=== PATIENT | female | born 1995 | race Caucasian/White ===

== ENCOUNTER 2025-04-24 15:48 | Day surgery (SDC) | payer OTHER, SELFPAY ==
[2025-04-24] VITALS (22 sets, daily range): BP systolic 69–116; BP diastolic 29–74; PULSE 76–128; RESP 14–20; TEMP 36.6–37.1; O2SAT 98–100; BMI 19.3
--- NOTE | 2025-04-24 16:01 | US_ITS ---
PROCEDURE: TRANSVAGINAL W/PREG US 04/24/2025 REASON FOR EXAM: VAGINAL BLEEDING, NEEDS TO BE PORTABLE TECHNIQUE: Procedure Code: USTVAGP Modality: US Procedure: TRANSVAGINAL W/PREG US COMPARISON: None available. FINDINGS Prominent size of the uterus measuring 15.3 x 10.3 x 7.1 cm. No discrete uterine myoma. No normal intrauterine gestational sac/sac-like structure is visualized. There is prominent thickening of the endometrium and moderate amount of complex heterogeneous probable blood clot material within the uterine cavity and expanding the cervical os, which is nonspecific but suggestive of an ongoing/incomplete spontaneous . Neither ovary is identified with certainty on this exam. No adnexal mass or significant free pelvic fluid is appreciated. US/Transvaginal w/Preg US IMPRESSION: No IUP visualized. Prominent thickened endometrium with moderate amount of com plex heterogeneous probable blood clot material within the uterine cavity and expanding the cervical os. Nonspecific but findi ngs most likely reflect an ongoing/incomplete spontaneous . Correlate clinically. Reading Location: [id number]
--- NOTE | 2025-04-24 16:16 | EDS_ITS ---
HPI HPI - Female History of Present Illness Chief Complaint: Vag Bld, Preg Detail of Chief Complaint: Vaginal bleeding for couple week Informant: patient and other (Security Agent Fabiola) Pain Pain: Positive for Pelvic Pain Bleeding Issue: Positive for Vaginal bleeding and Passing clots Associated Symptoms Test: Positive Sexually: Positive for Active P: 3 Ab: 1 Narrative Narrative: Patient is a 29-year-old G4, P3 Ab1 female. Present twin gestation. I was told by the financial reporting manager Fabiola that she had demise of one of the twins. Uncertain whether she passed it or did not pass it. She has been bleeding off and on for couple of weeks. She been in and out of consciousness today. She becomes very lightheaded if she sits up or stands up. She is passing large clots. The financial reporting manager and agree that she looks very pale. They believe she has positive blood type. She has never received RhoGAM. She has never had delivery here. She has not been seen by any PROFESSOR OF COMMUNICATION ARTS. Prior similar symptoms: Yes (Prior ) Recent Illness/Hospitalization: No (Ultrasound at facility [facility] not affiliated with the [facility] Medical History Miscarriage Home Medications Medication Instructions Recorded Last Taken Type NK 04/24/25 Unknown History Allergy/AdvReac Type Severity Reaction Status Date / Time No Known Allergies Allergy Verified 04/24/25 15:56 Social History household members: spouse housing: house Smoking Status: Never smoker ROS ROS ED Constitutional Constitutional ED: Denies chills, fever(s) or subjective ENT ENT ED: Denies ear pain Cardiovascular Cardiovascular: Reports palpitations and racing heartbeat; Denies chest pain Respiratory/Chest Respiratory/Chest: Reports dyspnea on exertion; Denies cough or dyspnea Gastrointestinal Gastrointestinal: Reports nausea; Denies abdominal pain or vomiting Genitourinary Genitourinary ED: Denies dysuria, hematuria or urinary frequency Musculoskeletal Musculoskeletal: Denies arthralgias or myalgias Neurologic Neurologic: Reports weakness Hematologic/Lymphatic Hematologic/Lymphatic: Denies easy bleeding or easy bruising EXAM Physical Exam Const Vital Signs: 04/24/25 15:49 04/24/25 16:45 04/24/25 17:00 Temperature 98.1 F Temperature Source Oral Pulse Rate 112 H 107 H 105 H Respiratory Rate 20 H 14 15 Blood Pressure 116/74 104/63 104/63 Blood Pressure Mean 88 76 76 Pulse Ox 100 100 98 Oxygen Delivery Method Room Air Room Air 04/24/25 17:44 Temperature 98.6 F Temperature Source Pulse Rate 105 H Respiratory Rate 15 Blood Pressure 104/63 Blood Pressure Mean 76 Pulse Ox 98 Oxygen Delivery Method Positive well nourished and well developed Constitutional Narrative: Patient is very pale. She is tachycardic. Her hands are covered with blood. General Appearance ED: well developed and pallor HEENT Reports moist mucous membranes Negative for trauma Eyes PERRL and EOMs intact bilaterally General Eye ED: Yes pale conjunctiva; Negative for scleral icterus Neck no lymphadenopathy, supple and no JVD Resp normal respiratory effort and clear to auscultation bilaterally Cardio regular rate, regular rhythm, S1 normal heart sound, no murmurs and no JVD GI normal to inspection, nondistended, normoactive bowel sounds, soft to palpation, non-distended and no masses; Negative for non-tender Narrative: Patient has large clots noted at the introitus. These were removed. On bimanual exam the external/internal os is open to my fingertip. Speculum was inserted. There was a gush of blood. Large clots were removed. After clearing the clots with gauze able to see the cervix. There appears to be products of conception noted. Attempted to tether out the products of conception. This was unsuccessful. Because there is confusion regarding one of the twins being alive and 1 having demise stat transvaginal portable ultrasound was ordered. Also the PROFESSOR OF COMMUNICATION ARTS on-call Dr. Brewer was paged because patient in all likelihood will need a D&C. Extremity full ROM; Negative for normal to inspection Extremity Narrative: Very pale with 2 to 3-second capillary refill Neuro oriented x3 and CN's II-XII intact bilaterally Neuro Narrative: Patient is slow to response. Uncertain whether this is due to language barrier or the fact that she is ill Skin General Skin Exam: pallor MDM MDM MDM Narrative Medical decision making narrative: Patient with significant vaginal bleeding. Will obtain ABO Rh since blood type is unknown. She was typed and screened. Stat CBC was obtained to determine her baseline. She had glass of water to p.m. Apparently she has not had anything to eat. Since she has had no care by a hotel desk clerk Dr. Maura Brewer who is on- call for OB no doc was paged. Patient was Katrin a fluid bolus of 1 L normal saline. Lab Data Attestation: I reviewed the patient's lab results. Lab results narrative: H&H 7.8 and 23.3. White count elevated 11.9 thousand with slight shift. Lactate elevated 2.1. Patient was initially typed and screened. She was typed and crossed orf 2 units. Presume her hemoglobin will drop when she equilibrates and the fact that she got IV fluids. Labs: Laboratory Results - last 24 hr 04/24/25 04/24/25 16:06 16:08 WBC 11.9 H RBC 2.59 L Hgb 7.8 L Hct 23.3 L MCV 90.0 MCH 30.1 MCHC 33.5 RDW Std Deviation 46.2 H RDW Coeff of Noe 14.1 Plt Count 278 MPV 8.9 Immature Gran % (Auto) 0.700 Neut % (Auto) 79.6 H Lymph % (Auto) 12.0 L Creek % (Auto) 6.2 Eos % (Auto) 1.1 Baso % (Auto) 0.4 Absolute Neuts (auto) 9.4 H Absolute Lymphs (auto) 1.42 Nucleated RBC % 0 Lactic Acid 2.1 H* Blood Type O POSITIVE Antibody Screen NEGATIVE Crossmatch See Detail Management Discussion w/another healthcare provider: Livestock Speculator (Spoke with Dr. Ariadne Brewer on-call for OB no doc. She would be able to see patient.) Treatment and Re-Evaluation Narrative: Dr. Brewer is presently speaking with patient, 1720. Dr. Ariadne Brewer requested IV iron. This was ordered. Plan is the OR Critical Care Time Critical Care Time: Yes Critical care time (excluding procedures): 30-74 minutes (36 minutes), Including time spent: (History, physical, documentation, interpretation of laboratory results and treatment for hemorrhagic shock, discussion with family), Discussing w/Consultants (OB on-call), Arranging Admission or Transfer and - (Transfusion due to hemorrhagic shock) Discharge Plan Dx/Rx/DC Orders Clinical Impression: Hemorrhagic shock, Vaginal bleeding affecting early , Sinus tachycardia, Symptomatic anemia, Signs and symptoms of anemia, Incomplete with shock Disposition Disposition: Acute Care Hospital [facility]
[2025-04-24 16:21] LABS: Hematocrit 23.3 % (37-47); Hemoglobin 7.8 g/dL (12.0-15.0); Immature Granulocytes Count 0.080 X10^3/uL (0.0-0.0); Mean Corp Hgb Conc 33.5 g/dL (32-36); Mean Corpuscular Volume 90.0 fL (81-99); Mean Platelet Vol. 8.9 fl (6.2-12.0); NRBC Flagged by Analyzer 0 % (0-5); Platelet Count 278 K/mm3 (150-450); RBC Distribution Width CV 14.1 % (11.6-14.6); RBC Distribution Width SD 46.2 fl (35.1-43.9); Red Blood Count 2.59 M/mm3 (4.2-5.4); White Blood Count 11.9 K/mm3 (4.4-11.0)
[2025-04-24] MEDS: 0.9% Normal Saline (1000mL) 1,000 ML 999 ML IV (16:21)
--- NOTE | 2025-04-24 17:53 | PCM.HP.OB ---
HPI - General General Date of Admission: 04/24/25 Date of Service: 04/24/25 Chief Complaint: bleeding HPI Narrative CORI RICKS, is a 29 F who presents with significant bleeding. Around 12-13 week IUP. Previous US with twin gestation. Although one was just a sac. Has been bleeding for over a week. And now bleeding much heavier and passing clots. Hgb 7.8. No starting level available. US with looks like placenta but no fetus with a HR. Reviewed with pt. D&C. Discussed possible Cytotec however given significant blood loss she will likely continue to bleed and need a blood transfusion and may need D&C anyway. Decline blood at this time but would be ok if need intraop. OK with IV iron. Maternal Data Information Gestational age: 12-13 week [facility] Medical History Miscarriage Home Medications Medication Instructions Recorded Last Taken Type NK 04/24/25 Unknown History Allergy/AdvReac Type Severity Reaction Status Date / Time No Known Allergies Allergy Verified 04/24/25 15:56 Social History household members: spouse housing: house Smoking Status: Never smoker History 5 Elective abortions Hx Para 3 Spontaneous abortions 1 Hx # Term Pregnancies Ectopic pregnancies Hx # Pregnancies Multiple births # of living children ROS ENT HEENT: Denies dizziness Cardiovascular Cardiovascular: Denies chest pain or dyspnea Gastrointestinal Gastrointestinal: Denies diarrhea, nausea or vomiting Vital Signs Vital Signs Vital Signs: 04/24/25 15:49 04/24/25 16:45 04/24/25 17:00 Temperature 98.1 F Temperature Source Oral Pulse Rate 112 H 107 H 105 H Respiratory Rate 20 H 14 15 Blood Pressure 116/74 104/63 104/63 Blood Pressure Mean 88 76 76 Pulse Ox 100 100 98 Oxygen Delivery Method Room Air Room Air 04/24/25 17:44 Temperature 98.6 F Temperature Source Pulse Rate 105 H Respiratory Rate 15 Blood Pressure 104/63 Blood Pressure Mean 76 Pulse Ox 98 Oxygen Delivery Method Weight Weight: 54.2 kg Body Mass Index (BMI) 19.3 Physical Exam Const alert and oriented x3 General Appearance: cooperative and comfortable HEENT normocephalic Head and Scalp: atraumatic Neck full ROM Resp normal respiratory effort Cardio Rate: tachycardic GI Negative for non-distended or no masses Extremity normal to inspection and full ROM Neuro moves all extremities Labs Labs Labs: Blood Type O POSITIVE Antibody Screen NEGATIVE Hct, (37-47) 23.3 % L Hgb, (12.0-15.0) 7.8 g/dL L Obstetrics Ultrasound Assessment & Plan (1) Incomplete with shock: (2) Signs and symptoms of anemia: PLAN: Plan Suction D&C
[2025-04-24] MEDS: Iron Sucrose Complex 200 MG in 0.9% Normal Saline (100mL Bag) 100 ML 220 MG IV (18:01)
--- NOTE | 2025-04-24 18:03 | PCM.PRE.AN2 ---
ASA Classification* ASA Classification ASA Classification: 2 (Denies all PMH) and E Assessment & Plan Anesthesia* Anesthesia Assessment Anesthesia Assessment: Discussed sedation and/or anesthesia options, risks, benefits, and alternatives with patient/parents/legal guardian/POA. Questions invited. The patient/parents/legal guardian/POA seems to understand and agrees to proceed with anesthesia plan. Reviewed the physical assessment, medical history, allergy history and patient home medications list prior to surgery/procedure/anesthetic and documented any changes. Performed airway and anesthesia risk assessments. As per ER: Patient is a 29-year-old G4, P3 Ab1 female. Present twin gestation. I was told by the geotechnical field technician Fabiola that she had demise of one of the twins. Uncertain whether she passed it or did not pass it. She has been bleeding off and on for couple of weeks. She been in and out of consciousness today. She becomes very lightheaded if she sits up or stands up. She is passing large clots. The geotechnical field technician and agree that she looks very pale. They believe she has positive blood type. She has never received RhoGAM. She has never had delivery here. She has not been seen by any QUARTER SECTION IRONER. Patient consents to blood if needed in emergency. I conveyed to the patient that she will most likely require blood transfusion. Patient agrees to receive blood if needed. Given patient HR increasing in ED to 120-130, and slight hypotension, as well as patient looking pale, ED physician and I agreed to go ahead and transfuse 2 units pRBC in ED. We will order 2 additional units of pRBC and FFP each on standby. Patient receiving iron infusion during my interview. I discussed the benefits, risks, and alternatives of blood transfusion with the patient. The patient verbalized understanding. Opportunity for questions invited. Anesthesia Type Anesthesia Type: General History Source History Obtained from:: Patient and Chart Anesthesia Focused Assessment* Temperature: 98.5 F Pulse Rate: 128 Blood Pressure: 104/62 Respiratory Rate: 20 Pulse Ox: 100 Oxygen Delivery Method: Room Air Airway Assessment Mouth opens: >3 cm Mallampati Score: I Teeth Condition: Intact Neck Range of motion (ROM): Full ROM Labs Anesthesia Preop lab: CBC WBC, (4.4-11.0) 11.9 K/mm3 H Today, 16:06 RBC, (4.2-5.4) 2.59 M/mm3 L Today, 16:06 Hgb, (12.0-15.0) 7.8 g/dL L Today, 16:06 Hct, (37-47) 23.3 % L Today, 16:06 Plt Count, (150-450) 278 K/mm3 Today, 16:06 CHEMISTRY COAG Pre-Assessment Diagnosis/Proposed Procedure Planned Operative Procedure(s): D&C Anesthesia History Anesthesia History - learning support aide: Anesthesia History - learning support aide Hx Hospitalization Any Problems With Anesthesia No 04/24/25 17:55 Cholinesterase deficiency No 04/24/25 17:55 You/Your Family Experience No 04/24/25 17:55 fever (hyperthermia) with Relationship Recent Exposure to Contagious No 04/24/25 17:55 Disease Does patient have nerve No 04/24/25 17:55 stimulator Patient instructed to have No 04/24/25 17:55 device shut off --Does patient have Pacemaker or ICD? When Was Last Pacemaker Check QUESTION #4 FULL TEXT: You/Your Family Experience fever (hyperthermia) with Anesthesia Last Oral Intake Last Oral intake: Last Oral Intake NPO since Meds taken in AM with sips of water? Meds patient instructed to take am of surgery PONV PONV - learning support aide: PONV - learning support aide Female HX of Motion Sickness HX of N/V After Surgery Non-Smoker Duration of Surgery greater than 60 minutes Number of Risk Factors PONV Score Height & Weight Height & Weight: Anesthesia: Height & Weight Height 5 ft 6 in 04/24/25 17:55 Weight: 54.2 kg 04/24/25 17:55 Body Mass Index (BMI) 19.3 04/24/25 17:55 Respiratory Assessment Respiratory Assessment - learning support aide: Respiratory Tract Infection Hx - learning support aide Hx Respiratory Tract Infection No 04/24/25 17:55 STOP Sleep Apnea STOP Sleep Apnea - learning support aide: STOP Sleep Apnea - learning support aide Hx Hypertension No 04/24/25 17:55 Hx Sleep Apnea No 04/24/25 17:55 CPAP BIPAP Do you snore loudly (louder No 04/24/25 17:55 than talking or can be heard Do you often feel tired/ No 04/24/25 17:55 fatigued/ sleepy during daytime? Has anyone observed you stop No 04/24/25 17:55 breathing during sleep? STOP Results Negative 04/24/25 17:55 QUESTION #5 FULL TEXT : Do you snore loudly (louder than talking or can be heard through closed doors)? Tobacco Use History Tobacco Use History - learning support aide: Tobacco Use History - learning support aide Tobacco Use Smoking Status Never smoker 04/24/25 15:56 Hx Tobacco Use Years Smoking Packs Smoked per Day Smoking Cessation Date was within the last 15 years Hx Smoking Cessation Date Hx Smoking Cessation Counseling Hematologic Medial History Hematologic Hx - learning support aide: Hematologic Medical Hx - in home caregiver Hx of Blood Transfusion Hx of Transfusion in last 3 Months Date of Last Transfusion (if within last 3 months) Ever experience any problems with transfusion(s)? Specify any problems Hx of Preganancy in last 3 Months Nurse Filling Out Transfusion & Questions: Date: Time: Patient unable to answer at this time (ie. confused, unrespo /Reproduction History /Reproductive History - learning support aide: /Reproductive Hx- learning support aide Hx Now Yes 04/24/25 17:55 Gestational Age (in weeks): EDC: Hx 4 04/24/25 15:56 Hx Para 3 04/24/25 17:57 Hx Section SAB No 04/24/25 17:55 Does the father of the baby or his family experience fever w Father of the baby Malignant Hypertension history comment Active Medications Active Medications: Current Medications Generic Name Dose Route Start Last Admin Trade Name Freq PRN Reason Stop Dose Admin Iron Sucrose 200 mg/ Sodium 110 mls @ 220 mls/hr 04/24/25 17:45 Chloride IV 04/24/25 18:14 X1 ONE PFSH Medical History Miscarriage Home Medications Medication Instructions Recorded Last Taken Type NK 04/24/25 Unknown History Allergy/AdvReac Type Severity Reaction Status Date / Time No Known Allergies Allergy Verified 04/24/25 15:56 Social History household members: spouse housing: house Smoking Status: Never smoker Review of Systems (Anesthesia) ROS Narrative System reviewed and no additional complaints, except as documented. Physical Exam Const alert, oriented x3 and average body habitus Resp normal respiratory effort, normal air movement and clear to auscultation bilaterally Cardio regular rate, regular rhythm, no murmurs and diaphoretic
[2025-04-24] MEDS: Lidocaine 1% (5 ml sdv) 5 ML Vial IV (19:38)
[2025-04-24] MEDS: fentaNYL 100 MCG/2 ML Ampul IV (19:38)
[2025-04-24] MEDS: Midazolam 2 MG/2 ML Syringe IV (19:40)
--- NOTE | 2025-04-24 19:45 | POC_PTH ---
PATIENT: CORI RICKS LOC: [facility] [place] U#:[id number] AGE/SX: 29/F ROOM: RE04/24/[address]: Dr. Ariadne Brewer MD : 1995 BED: DIS: 04/25/2025 SPEC #: [id number] RECD: 04/25/25 08:12 STATUS: HARSHAD RECristobal #: [id number] FITO: 04/24/25 19:[address]: Ariadne Brewer DEPT: SURGICAL PATHOLOGY RECD BY: Melecio Booth ENTERED: 04/25/25 09:52 SP TYPE: PROD CONC OTHR DR: Beto Chen PA-C Tissues: A - Product of conception, NOS Procedures: Surgery Specimen Level IV HEADER OPERATION: Dilation and curettage, suction PRE-OP DIAGNOSIS: Incomplete TISSUE SUBMITTED: A- Products of conception MICROSCOPIC DIAGNOSIS A. Uterine contents, "products of conception", suction curettage: - Immature chorionic villi consistent with products of conception. MICROSCOPIC DESCRIPTION Slides are reviewed. GROSS DESCRIPTION A. Received in formalin labeled with the patient's name and date of . Designated as " products of conception" is a 9.3 x 6.9 x 3.5 cm aggregate of castle-red to purple-palomino firm, rubbery tissue fragments admixed with an 85.7 g, 9.9 x 7.2 x 3.1 cm blood clot. The largest soft tissue fragment is serially sectioned revealing a castle-pink to red, soft and spongy, hemorrhagic cut surfaces. parts are not grossly appreciated. Senior Client Advisor sections are submitted in 3 cassettes. PA 04/25/2025 CPT:19980
[2025-04-24] MEDS: Lactated Ringers 1,000 ML 1000 ML IV (19:53)
[2025-04-24 20:11] LABS: Reflex Lactate? Y
--- NOTE | 2025-04-24 20:35 | PCM.POST.ANE ---
Anesthesia: Postop Eval I Current Vital Signs Temperature: 97.9 F Pulse Rate: 101 Blood Pressure: 91/59 Respiratory Rate: 18 Pulse Ox: 100 Oxygen Delivery Method: Room Air Assessment Airway patent: Yes Spontaneous unlabored respirations: Yes Mental status: Asleep nausea: No Vomiting: No Anesthesia Complication: No Fluid Hydration Crystalloid volume administer (ml): 1,000 Blood Product volume administered (ml): 700 Total IV fluid infused: 1,700 Progress Note Anesthesia document: Postop Eval 1 completed: Yes
--- NOTE | 2025-04-24 20:40 | PCM.POSTANE2 ---
Anesthesia Postop Eval I Sum Postop Eval Completion status Anesthesia document: Postop Eval 1 completed: Yes Anesthesia Postop Eval I Summary Anesthesia Postop Eval I Summary: Anesthesia Postop Eval I: Assessment Summary Airway patent Yes 04/24/25 20:40 Spontaneous unlabored Yes 04/24/25 20:40 respirations Mental status Asleep 04/24/25 20:40 nausea No 04/24/25 20:40 Vomiting No 04/24/25 20:40 Anesthesia Postop Eval I: Fluid Summary Crystalloid volume administer 1,000 04/24/25 20:40 (ml) Colloids volume administered ( ml) Blood Product volume 700 04/24/25 20:40 administered (ml) Total IV fluid infused 1,700 04/24/25 20:40 Anesthesia Postop Eval I: Summary Notes Anesthesia Complication No 04/24/25 20:40 Anesthesia Complication Comment: Post-operative progress note Anesthesia: Postop Eval II Evaluation Mental status: Awake Pain Level: 0 nausea: No Vomiting: No Progress Note Post-operative progress note: Patient had 2 pRBC in OR, that were started in ED. In PACU, a further 2 pRBC being given. On the floor, 2 units of FFP should be given for balanced resuscitation. Otherwise, management as per primary team. Complications Anesthesia Complication: No
--- NOTE | 2025-04-24 20:56 | SUR.PHASEI ---
Addendum entered by Cecelia Patrick 04/24/25 21:12: both units of blood verified with [facility] RN, before given. Original Note: pt given 3rd and 4th units of blood upon arrival to pacu. 3rd unit [id number] given in left AC started at 2024. 4th unit [id number] given in right AC started at [address]28. per Dr. Herrera (anesthesia) pt needs to receive 2 units of FFP as well.
--- NOTE | 2025-04-24 21:14 | SUR.PHASEI ---
blood unit [id number] complete at 2105, [id number] complete at 2110.
--- NOTE | 2025-04-24 21:20 | OP.PCM_ITS ---
Operative Report (Standard) Operative Information Date of Procedure: 04/24/25 Pre-Operative Diagnosis: incomplete ab Post-Operative Diagnosis: same Surgery/Procedure Performed: suction D&C bicycle repairman: No Type of Anesthesia: General RN Documented Start/Stop Times: Operation Date: 04/24/25 19:45 Case Time Anesthesia Start 04/24/25 19:24 Into Room 04/24/25 19:24 Procedure Start 04/24/25 19:53 Procedure End 04/24/25 20:05 Anesthesia End 04/24/25 20:19 Out of Room 04/24/25 20:19 Into Recovery 04/24/25 20:20 Procedure Start Time: 19:53 Procedure Stop Time: 20:05 Select all DRAINS/GRAFTS/IMPLANTS that apply: None Estimated Blood Loss: 75 cc Fluids Replaced: 1000 cc Specimen collected: Yes Description of specimen(s) removed: products of conception Description of surgery: Patient taken to the OR with IVF and 2 units of PRBC going. She was placed in a dorsal supine position on the OR table. General anesthesia was induced. She was placed in a dorsal lithotomy position. She was prepped and draped in the normal fashion. Her bladder was drained for about 500 cc. A weighted speculum was placed in the posterior vaginal. A large clot was removed. The cervix was visualized and found to be dilated. A single tooth tenaculum was used to grasp the anterior cervix. A ring forceps was used to remove a large piece of placenta. No parts were obvious. A #10 suction Curette was placed into the endometrial cavity. The cavity was emptied of its contents. A sharp Curette was used to remove the remaining membrane. Hemostasis was achieved. The single tooth tenaculum was removed. The patient was clean up. All sponge and instrument counts were correct. Surgical Findings: Large piece of placenta in lower uterine segment Complications Complications: No Admit VTE Documentation VTE Present on Admission: No VTE Mechan Device Prophylaxis: SCD's
[2025-04-24] MEDS: 0.9% Saline Lock 10 ML Syringe IV (22:23)
[2025-04-24 23:22] LABS: Hematocrit 29.2 % (37-47); Hemoglobin 9.9 g/dL (12.0-15.0); Mean Corp Hgb Conc 33.9 g/dL (32-36); Mean Corpuscular Volume 86.1 fL (81-99); Mean Platelet Vol. 8.9 fl (6.2-12.0); Platelet Count 212 K/mm3 (150-450); RBC Distribution Width CV 13.5 % (11.6-14.6); RBC Distribution Width SD 42.0 fl (35.1-43.9); Red Blood Count 3.39 M/mm3 (4.2-5.4); White Blood Count 13.1 K/mm3 (4.4-11.0)
[2025-04-25] VITALS (7 sets, daily range): BP systolic 86–105; BP diastolic 46–60; PULSE 64–95; RESP 14–16; TEMP 36.6–37; O2SAT 98–100
[2025-04-25] MEDS: 0.9% Saline Lock 10 ML Syringe IV (02:37)
[2025-04-25 06:55] LABS: Hematocrit 28.5 % (37-47); Hemoglobin 9.7 g/dL (12.0-15.0); Immature Granulocytes Count 0.080 X10^3/uL (0.0-0.0); Mean Corp Hgb Conc 34.0 g/dL (32-36); Mean Corpuscular Volume 86.6 fL (81-99); Mean Platelet Vol. 9.1 fl (6.2-12.0); NRBC Flagged by Analyzer 0 % (0-5); Platelet Count 229 K/mm3 (150-450); RBC Distribution Width CV 14.4 % (11.6-14.6); RBC Distribution Width SD 44.8 fl (35.1-43.9); Red Blood Count 3.29 M/mm3 (4.2-5.4); White Blood Count 10.0 K/mm3 (4.4-11.0)
--- NOTE | 2025-04-25 07:18 | PCM.PN.OB ---
Subjective Subjective Feels great. Initial pad was full but has had scant to minimal bleeding since. No pain. Up to restroom without SOB, CP or dizziness. S/p 4 units PRBC. Hgb stable. Tolerating PO. Wants to go home. Does have oral Iron. Does have follow up planned. Encouraged to call the office for bleeding, pain or fever Objective Data Objective Data Vital Signs: Vital Signs Temp Pulse Resp BP Pulse Ox O2 Del Method 97.9 F 64 16 86/47 L 100 Room Air 04/25/25 06:01 04/25/25 06:05 04/25/25 06:01 04/25/25 06:05 04/25/25 06:01 04/25/25 06:01 Oxygen Delivery Method Room Air Weight: 55.9 kg Body Mass Index (BMI) 19.3 Intake & Output: Intake and Output for Last 24 Hours 04/23/25 04/24/25 04/25/25 23:59 23:59 23:59 Intake Total 1210 / 1210 650 / 650 Output Total 600 / 600 900 / 900 Balance 610 / 610 -250 / -250 Lab / Micro Data 04/25/25 06:40 Labs: Laboratory Results - last 24 hr 04/24/25 16:06: WBC 11.9 H, RBC 2.59 L, Hgb 7.8 L, Hct 23.3 L, MCV 90.0, MCH 30.1, MCHC 33.5, RDW Std Deviation 46.2 H, RDW Coeff of Noe 14.1, Plt Count 278, MPV 8.9, Immature Gran % (Auto) 0.700, Neut % (Auto) 79.6 H, Lymph % (Auto) 12.0 L, [place] % (Auto) 6.2, Eos % (Auto) 1.1, Baso % (Auto) 0.4, Absolute Neuts (auto) 9.4 H, Absolute Lymphs (auto) 1.42, Nucleated RBC % 0, Lactic Acid 2.1 H*, Blood Type O POSITIVE, Antibody Screen NEGATIVE 04/24/25 16:08: Crossmatch See Detail 04/24/25 16:08: Crossmatch See Detail 04/24/25 22:02: Lactic Acid 1.1 04/24/25 23:13: WBC 13.1 H, RBC 3.39 L, Hgb 9.9 L, Hct 29.2 L, MCV 86.1, MCH 29.2, MCHC 33.9, RDW Std Deviation 42.0, RDW Coeff of Noe 13.5, Plt Count 212, MPV 8.9 04/25/25 06:40: WBC 10.0, RBC 3.29 L, Hgb 9.7 L, Hct 28.5 L, MCV 86.6, MCH 29.5, MCHC 34.0, RDW Std Deviation 44.8 H, RDW Coeff of Noe 14.4, Plt Count 229, MPV 9.1, Immature Gran % (Auto) 0.800, Neut % (Auto) 81.4 H, Lymph % (Auto) 12.4 L, [place] % (Auto) 5.2, Eos % (Auto) 0.0, Baso % (Auto) 0.2, Absolute Neuts (auto) 8.1 H, Absolute Lymphs (auto) 1.23, Nucleated RBC % 0 Radiography Diagnostic Testing: Radiology Impression Obstetrics Ultrasound 04/24/25 16:01 IMPRESSION: No IUP visualized. Prominent thickened endometrium with moderate amount of complex heterogeneous probable blood clot material within the uterine cavity and expanding the cervical os. Nonspecific but findings most likely reflect an ongoing/incomplete spontaneous . Correlate clinically. Reading Location: [facility] Constitutional Constitutional: Denies chills or fatigue Respiratory/Chest Respiratory/Chest: Denies dyspnea or dyspnea on exertion Gastrointestinal Gastrointestinal: Denies nausea or vomiting Physical Exam Const alert, oriented x3 and no apparent distress General Appearance: cooperative and comfortable HEENT normocephalic and head/scalp atraumatic Eyes PERRL and EOMs intact bilaterally Resp normal respiratory effort Effort and Inspection: able to speak in complete sentences Cardio regular rate GI soft to palpation and non-tender Extremity normal to inspection Neuro oriented x3, CN's II-XII intact bilaterally and moves all extremities Psych mental status grossly normal Assessment & Plan (1) Signs and symptoms of anemia: (2) Incomplete with shock: PLAN: Plan Discharge
--- NOTE | 2025-04-25 07:42 | DS.PCM_ITS ---
Providers Date of Admission: 04/24/25 Date of Discharge: 04/25/25 Primary Care Physician: Beto Chen PA-C Reason For Visit: SUCTION D\C Diagnosis Discharge Diagnosis (1) Signs and symptoms of anemia: Status: Acute Code(s): R68.89 - Other general symptoms and signs (2) Incomplete with shock: Status: Acute Code(s): O03.31 - Shock following incomplete spontaneous Plan Discharge Medications at Discharge Home Medications NK 04/24/25 Hospital Course Operations None (Suction D&C) Procedures None Summary of Care Provided Minutes Spent on Discharge: 20 Hospital Course: Admitted through ED after hemorrhage from incomplete AB. Suction D&C for retained POC. Received 4 PRBCs. Bleeding decreased greatly after procedure. Physical Exam Const alert and oriented x3 General Appearance: cooperative and comfortable Resp normal respiratory effort GI soft to palpation Neuro moves all extremities Weight / BMI Weight Weight: 55.9 kg Body Mass Index (BMI) 19.3 ABG / Lab / Microbiology Data 04/25/25 06:40 Laboratory: Laboratory Results - last 24 hr 04/24/25 16:06: WBC 11.9 H, RBC 2.59 L, Hgb 7.8 L, Hct 23.3 L, MCV 90.0, MCH 30.1, MCHC 33.5, RDW Std Deviation 46.2 H, RDW Coeff of Noe 14.1, Plt Count 278, MPV 8.9, Immature Gran % (Auto) 0.700, Neut % (Auto) 79.6 H, Lymph % (Auto) 12.0 L, [place] % (Auto) 6.2, Eos % (Auto) 1.1, Baso % (Auto) 0.4, Absolute Neuts (auto) 9.4 H, Absolute Lymphs (auto) 1.42, Nucleated RBC % 0, Lactic Acid 2.1 H*, Blood Type O POSITIVE, Antibody Screen NEGATIVE 04/24/25 16:08: Crossmatch See Detail 04/24/25 16:08: Crossmatch See Detail 04/24/25 22:02: Lactic Acid 1.1 04/24/25 23:13: WBC 13.1 H, RBC 3.39 L, Hgb 9.9 L, Hct 29.2 L, MCV 86.1, MCH 29.2, MCHC 33.9, RDW Std Deviation 42.0, RDW Coeff of Noe 13.5, Plt Count 212, MPV 8.9 04/25/25 06:40: WBC 10.0, RBC 3.29 L, Hgb 9.7 L, Hct 28.5 L, MCV 86.6, MCH 29.5, MCHC 34.0, RDW Std Deviation 44.8 H, RDW Coeff of Noe 14.4, Plt Count 229, MPV 9.1, Immature Gran % (Auto) 0.800, Neut % (Auto) 81.4 H, Lymph % (Auto) 12.4 L, [place] % (Auto) 5.2, Eos % (Auto) 0.0, Baso % (Auto) 0.2, Absolute Neuts (auto) 8.1 H, Absolute Lymphs (auto) 1.23, Nucleated RBC % 0 Radiography Diagnostic Testing: Radiology Impression Obstetrics Ultrasound 04/24/25 16:01 IMPRESSION: No IUP visualized. Prominent thickened endometrium with moderate amount of complex heterogeneous probable blood clot material within the uterine cavity and expanding the cervical os. Nonspecific but findings most likely reflect an ongoing/incomplete spontaneous . Correlate clinically. Reading Location: [facility] D/C Instructions Discharge Activity: Return to Normal Activity May resume sexual activity in: No Restrictions Call your doctor if your incision/area has: Sudden Increased Bleeding Call your doctor if you observe: Fever of 101 or Higher DC O2, CPAP, BIPAP Needs Home O2 Discharge instructions: No Please Follow Up With: Ariadne Brewer MD When: 2 weeks Meaningful Use Info Meaningful Use Meaningful Use Diagnoses (Choose all that apply): None applicable Discharge Plan Admission Primary Reason for Your Visit: bleeding Attending Provider: Ariadne Brewer Primary Care Provider: Beto Chen Instructions Patient Instructions: D and C Dc Print Language: Mohawk Discharge Orders/Prescriptions Prescriptions: No Action NK Referrals / Follow Up: Beto Chen PAAta [Primary Care Provider, Medical] Disposition Disposition (needs filled in before D/C Order can be placed): Home, Self Care
--- NOTE | 2025-04-25 10:00 | CASEMGMT ---
Social Work- SW met with pt and pt to provide loss and grief in and printables and [id number] keepsake. SW offered support. Pt and pt spouse appreciative. FABIOLA Ospina
== END 2025-04-25 10:56 | disposition home or self-care (01) ==
LOC: ED 16:56 → SDC 17:51 → ACINP 17:52 → MS3 21:35
PROVIDERS: Emergency Provider Emergency Medicine; PCP Physician Assistant; Visit Provider Obstetrics & Gynecology
DX: O03.31 Shock following incomplete spontaneous abortion (principal); O99.011 Anemia complicating pregnancy, first trimester; Z3A.13 13 weeks gestation of pregnancy; D64.9 Anemia, unspecified; O03.1 Delayed or excessive hemorrhage following incomplete spontaneous abortion
CPT/HCPCS: 59812; 01965; 36415; 76817; 83605; 85025; 85027; 86644; 86850; 86900; 86901; 88305; 99285; J1756; P9016; A4216; P9017